=== PATIENT | female | born 1965 | race Caucasian/White ===

== ENCOUNTER → 2021-08-02 | Day surgery (SDC) | payer OTHER ==
--- NOTE | 2021-08-02 11:48 | RAD REPORT ---
EXAM DESCRIPTION: US - Breast Core BX w/US Guidance - 08/02/2021 10:57 am CLINICAL HISTORY: R92.8 COMPARISON: Breast ultrasound 06/27/2021, mammogram 05/30/2021 TECHNIQUE: The patient presents for ultrasound-guided biopsy of a previously detailed 11 mm left nuris ast mass. The ultrasound-guided core biopsy procedure, risks and alternatives were discussed with the patient i n detail. After answering all questions, both oral and written consent were obtained. Time out proced ure was performed. The patient had no contraindicated allergy or medication history. Preliminary imaging identified the 11 mm oval mixed echogenicity left breast mass in the 1 o'clock po sition. The left breast was prepped and draped in the usual sterile fashion. From a(n) lateral approa ch, skin and deeper tissues were anesthetized with 1% lidocaine. Under direct sonographic visualizati on a 14 gauge vacuum assisted core biopsy needle was advanced and placed at the margin of the mass. T here were a total of 3 core biopsies obtained under direct sonographic guidance. The mass showed sign ificant distortion but progressed after each of the 3 core biopsies. After the third biopsy there was no remnant identifiable mass. At the conclusion of the procedure a localization clip was placed under sonographic guidance, utilizi ng best approximation of the biopsy site. Post biopsy imaging showed no hematoma or measurable bleeding within the breast. Hemostasis was obtai marina at the skin site with a sterile bandage placed. Post procedure care and precaution instructions were given to the patient. IMPRESSION: 1. Ultrasound-guided core biopsy was performed of the left breast mass as detailed. All obtained material was given to pathology for histologic assessment. 2. Post biopsy localization clip was placed under ultrasound guidance.
== END ==
LOC: DS 10:30
PROVIDERS: ATTEND Clinical Nurse Specialist Women's Health
DX: D24.2 Benign neoplasm of left breast (principal)
CPT/HCPCS: 19083; 88305